=== PATIENT | male | born 1985 | race Caucasian/White ===

== ENCOUNTER 2017-11-20 01:00 | Emergency (ER) | payer OTHER ==
[~2017-11-20] VITALS: Ht 185.4 cm; Wt 108.9 kg
[2017-11-20] MEDS ORDERED: ESOM40CA PO (01:34)
--- NOTE | 2017-11-20 01:35 | NUR ---
PT AMBULATED TO ER WITH C/O EPIGASTRIC PAIN FOR 3 WEEKS AND FEELS "MUCH WORSE" TODAY. PER PT, PT WAS DIAGNOSED WITH H. PYLORI 4-5 YEARS AGO. PT STATES HE TAKES NEXIUM "1 DOSE TWICE DAILY." PT STATES HE FEELS SHORT OF BREATH INTERMITTENTLY. SAO2 100% RA. RESPIRATIONS EVEN + UNLABORED. PT DENIES CHEST PAIN. PT AAOX4. VSS. FAMILY MEMBER AT BEDSIDE.
--- NOTE | 2017-11-20 02:02 | NUR ---
KRISTEN BOLAÑOS AT BEDSIDE FOR MSE.
[2017-11-20] MEDS ORDERED: LIDOCAINE VISCUS 2% 15 ML UDC ONE ×2 (02:11→02:32)
[2017-11-20] MEDS ORDERED: MAG HYDROX/AL HYDROX/SIMETH 30 ML LIQUID UDC ONE (02:11)
[2017-11-20] MEDS ORDERED: LIDOCAINE VISCUS 2% 15 ML UDC MM ONE (02:15)
[2017-11-20] MEDS ORDERED: MAG HYDROX/AL HYDROX/SIMETH 30 ML LIQUID UDC PO ONE (02:15)
--- NOTE | 2017-11-20 02:22 | NUR ---
ATTEMPTED TO PULL OUT LIDOCAINE VISCUS FROM PYXIS BUT POCKET WAS EMPTY.
--- NOTE | 2017-11-20 02:25 | NUR ---
XRAY AT BEDSIDE.
--- NOTE | 2017-11-20 02:51 | NUR ---
DR. LANDIS AT BEDSIDE FOR RE-EVALUATION
--- NOTE | 2017-11-20 03:02 | NUR ---
Patient discharged to home in stable conditon. Written and verbal after care instructions given. Patient verbalizes understanding of instructions. Pt ambulated from ER in steady gait. All belongings with pt. VSS. No distress noted.
[2017-11-20] MEDS ORDERED: ONDANSETRON ODT 4 MG TAB.RAPDIS ONE (03:06)
[2017-11-20 03:08] VITALS: BP 141/72
[2017-11-20] MEDS ORDERED: ONDANSETRON ODT 4 MG TAB.RAPDIS SL ONE (03:15)
== END 2017-11-20 03:09 | disposition home or self-care (01) ==
LOC: ER 01:01
DX: K21.9 Gastro-esophageal reflux disease without esophagitis (principal)
CPT/HCPCS: 71045; 93005; A4663; Q0162